=== PATIENT | female | born 1940 | race Caucasian/White ===

== ENCOUNTER 2016-10-13 00:07 | Inpatient (IN) | payer MEDICARE ==
[~2016-10-13] VITALS: Ht 170.2 cm; Wt 67.3 kg
[2016-10-13 01:38] LABS: BASOPHILS 0.5 % (0.0-2.0); EOSINOPHILS 0.8 % (0-7); HEMATOCRIT 41.9 % (36.0-48.0); HEMOGLOBIN 14.1 g/dL (12-16); IMMATURE GRANULOCYTES 0.4 % (0-5); LYMPHOCYTES 24.4 % (15-50); MCH 29.4 pg (26.0-34.0); MCHC 33.7 g/dL (31.0-37.0); MCV 87.5 fL (80.0-100.0); MEAN PLATELET VOLUME 9.9 fL (7.4-10.4); MONOCYTES 6.8 % (2-11); NEUTROPHILS 67.1 % (40-80); PLATELET COUNT 275 10x3/uL (130-400); RBC 4.79 10x6/uL (4.00-5.40); RDW 13.1 % (11.5-14.5)
[2016-10-13 02:07] LABS: ALKALINE PHOSPHATASE 110 U/L (46-116); ALT (SGPT) 24 U/L (10-68); BILIRUBIN - TOTAL 0.49 mg/dL (0.2-1.3); CALC OSMOLALITY 278 mosm/kg (275-300); CALCIUM 9.2 mg/dL (8.5-10.1); CARBON DIOXIDE 25.5 mmol/L (21.0-32.0); CHLORIDE - SERUM 103 mmol/L (98-107); CREATININE - SERUM 0.7 mg/dL (0.6-1.3); GLUCOSE 119 mg/dL (74-106); POTASSIUM - SERUM 3.9 mmol/L (3.5-5.1); PROTEIN - SERUM 6.9 g/dL (6.4-8.2); SODIUM 139 mmol/L (136-145); UREA NITROGEN 13 mg/dL (7-18); eGFR NON AFRICAN AMERICAN 87 mL/min (90-120)
[2016-10-13 03:06] LABS: APPEARANCE CLEAR (CLEAR); BILIRUBIN NEGATIVE (NEGATIVE); COLOR YELLOW (YELLOW); GLUCOSE NEGATIVE (NEGATIVE); KETONE NEGATIVE (NEGATIVE); LEUKOCYTE ESTERASE NEGATIVE (NEGATIVE); NITRITE NEGATIVE (NEGATIVE); PROTEIN NEGATIVE (NEGATIVE); SPECIFIC GRAVITY 1.015 (1.005-1.020); UROBILINOGEN NORMAL (NORMAL)
[2016-10-13] MEDS ORDERED: METOPROLOL TART25 MG PO (06:00)
[2016-10-13] MEDS ORDERED: ZESTRIL40 MG PO (06:02)
[2016-10-13] MEDS ORDERED: ASCORBIC ACID500 MG PO (06:04)
[2016-10-13] MEDS ORDERED: MULTIPLE VITAMI1 TA1 PO (06:04)
[2016-10-13] MEDS ORDERED: VITAMIN D31000 UNI2 PO (06:05)
[2016-10-13] MEDS ORDERED: ATIVAN0.5 MG PO (06:06)
[2016-10-13] MEDS ORDERED: HYDROCHLOROTH12.5 M1 PO (06:06)
[2016-10-13] MEDS ORDERED: MOBIC7.5 MG PO (06:07)
[2016-10-13 06:08] VITALS: Ht 170.2 cm; Wt 67.3 kg
--- NOTE | 2016-10-13 07:30 | NUR ---
PATIENT RECEIVED ALERT IN LOW MENDOZA POSITION. RESPIRATIONS EVEN AND UNLABORED. DENIES PAIN AND OTHER NEEDS. SIDE RAILS UP X3. BED IN LOW POSITION. CALL LIGHT IN REACH. FAMILY PRESENT.
[2016-10-13 08:40] VITALS: BP 173/91
--- NOTE | 2016-10-13 09:00 | NUR ---
PATIENT IN LEFT LATERAL POSITION RESTING WITH EYES CLOSED. RESPIRATIONS EVEN AND UNLABORED. FAMILY PRESENT. SIDE RAILS UP X3. BED IN LOW POSITION. CALL LIGHT IN REACH.
--- NOTE | 2016-10-13 11:45 | NUR ---
PATIENT ALERT IN BED WITH PHYSICIAN AT BEDSIDE. NO SIGNS OF DISTRESS NOTED. SIDE RAILS UP X2. BED IN LOW POSITION. CALL LIGHT IN REACH.
--- NOTE | 2016-10-13 12:30 | NUR ---
MEDICATION ADMINISTERED PER ORDERS. PATIENT UP TO RESTROOM THEN BACK TO BED SBA. POSITIONED SELF FOR COMFORT. DENIES NEEDS. SIDE RAILS UP X2. BED IN LOW POSITION. CALL LIGHT IN REACH.
[2016-10-13 12:34] VITALS: BP 180/86
--- NOTE | 2016-10-13 14:37 | NUR ---
ALERT IN BED TALKING ON PHONE. FAMILY PRESENT. NO NEEDS VOICED. SIDE RAILS UP X2. BED IN LOW POSITION. CALL LIGHT IN REACH.
[2016-10-13 16:34] VITALS: BP 179/86
--- NOTE | 2016-10-13 18:00 | NUR ---
PATIENT IN LEFT LATERAL POSITION RESTING QUIETLY. RESPIRATION EVEN AND UNLABORED. SIDE RAILS UP X2. BED IN LOW POSITION. CALL LIGHT IN REACH.
--- NOTE | 2016-10-13 19:47 | NUR ---
PATIENT IS RESTING IN BED WITH GUESTS AT BEDSIDE. PATIENT COMPLAINS OF FEELING ANXIOUS AND CONSTIPATED. I OFFERED THE PATIENT ATIVAN AND PRUNE JUICE WITH HER 2100 MEDS AND SHE AGREED. BED IN LOWEST POSITION AND CALL LIGHT WITHIN REACH. ENCOURAGED PATIENT TO CALL IF SHE HAS FURTHER NEEDS.
[2016-10-13 21:36] VITALS: BP 161/89
--- NOTE | 2016-10-14 07:25 | NUR ---
PATIENT RECEIVED ALERT IN HIGH MENDOZA POSITION. RESPIRATIONS EVEN AND UNLABORED. SIDE RAILS UP X2. BED IN LOW POSITION. CALL LIGHT IN REACH. DENIES NEEDS.
[2016-10-14 07:53] VITALS: BP 173/69
--- NOTE | 2016-10-14 08:42 | NUR ---
PATIENT IN BED ALERT EATING BREAKFAST. TOLERATING WELL. SCHEDULED MEDICATION ADMINISERED. SIDE RAILS UP X2. BED IN LOW POSITION. CALL LIGHT IN REACH. WILL CONTINUE TO MONITOR.
--- NOTE | 2016-10-14 12:25 | NUR ---
PATIENT ALERT IN MID MENDOZA POSITION WITH FAMILY PRESENT. NO SIGNS OF DISTRESS NOTED. WANTING TO GO HOME. DENIES NEEDS. SIDE RAILS UP X2. BED IN LOW POSITION. CALL LIGHT IN REACH.
[2016-10-14 12:36] VITALS: BP 171/82
[2016-10-14] MEDS ORDERED: METOPROLOL TART25 MG PO (13:08)
[2016-10-14] MEDS ORDERED: ZESTRIL40 MG PO (13:09)
[2016-10-14] MEDS ORDERED: CATAPRES0.1 MG PO (13:09)
[2016-10-14] MEDS ORDERED: CELEXA20 MG PO (13:10)
[2016-10-14] MEDS ORDERED: ATIVAN1 MG PO (13:11)
--- NOTE | 2016-10-14 13:35 | NUR ---
IV TO RIGHT WRIST D/C WITH CATH TIP INTACT. SITE COVERED WITH GAUZE AND BANDAID. WELL TOLERATED.
--- NOTE | 2016-10-14 13:55 | NUR ---
D/C TEACHING AND PRESCRIPTION PROVIDED. STATES UNDERSTANDING. QUETSIONS ANSWERED.
--- NOTE | 2016-10-14 14:04 | NUR ---
PATIENT D/C HOME WITH FAMILY. TRANSFERRED DOWNSTAIRS VIA WHEELCHAIR.
== END 2016-10-14 14:05 | disposition home or self-care (01) | DRG 948 ==
LOC: D.ER 00:07 → D.MS 04:52
PROVIDERS: Family Medicine; ADMIT Family Medicine
DX: R53.1 Weakness (principal); F19.939 Other psychoactive substance use, unspecified with withdrawal, unspecified; T43.226A Underdosing of selective serotonin reuptake inhibitors, initial encounter; Z91.128 Patient's intentional underdosing of medication regimen for other reason; R11.2 Nausea with vomiting, unspecified; F41.9 Anxiety disorder, unspecified

== ENCOUNTER 2017-04-20 12:18 | Inpatient (IN) | payer MEDICARE ==
[~2017-04-20 12:18] MED LIST: ASCORBIC ACID500 MG PO; ATIVAN0.5 MG PO; ATIVAN1 MG PO; CATAPRES0.1 MG PO; CELEXA20 MG PO; HYDROCHLOROTH12.5 M1 PO; METOPROLOL TART25 MG PO; MOBIC7.5 MG PO; MULTIPLE VITAMI1 TA1 PO; VITAMIN D31000 UNI2 PO; ZESTRIL40 MG PO
[2017-04-20 13:18] LABS: BASOPHILS 0.2 % (0-2); EOSINOPHILS 0.8 % (0-7); HEMATOCRIT 40.3 % (36.0-48.0); HEMOGLOBIN 13.8 g/dL (12-16); IMMATURE GRANULOCYTES 0.6 % (0-5); LYMPHOCYTES 18.4 % (15-50); MCHC 34.2 g/dL (31.0-37.0); MCV 87.6 fL (80.0-100.0); MEAN PLATELET VOLUME 9.7 fL (7.4-10.4); MONOCYTES 3.6 % (2-11); NEUTROPHILS 76.4 % (40-80); PLATELET COUNT 239 10x3/uL (130-400); RDW 13.3 % (11.5-14.5); WBC 9.7 10x3/uL (4.8-10.8)
[2017-04-20 13:25] LABS: APTT 27.3 SECONDS (22.8-39.4); INR 0.93 (0.85-1.17); PROTIME 12.3 SECONDS (11.6-15.0)
[2017-04-20 13:30] LABS: ALBUMIN 3.6 g/dL (3.4-5.0); ANION GAP 12.1 mmol/L (8-16); BILIRUBIN - TOTAL 0.4 mg/dL (0.2-1.3); CALCIUM 8.5 mg/dL (8.5-10.1); CARBON DIOXIDE 26.4 mmol/L (21.0-32.0); POTASSIUM - SERUM 3.5 mmol/L (3.5-5.1); PROTEIN - SERUM 6.6 g/dL (6.4-8.2)
[2017-04-20] MEDS ORDERED: TRAZODONE HCL50 MG PO (16:39)
[2017-04-20 16:46] VITALS: BP 95/65
--- NOTE | 2017-04-20 19:15 | NUR ---
RECEIVED CARE FROM DAY NURSE. PT IN ROOM WITH COMPANY AT SIDE. REPORTS NO NEEDS AT THIS TIME. CALL LIGHT AT SIDE.
[2017-04-20 19:28] VITALS: BP 145/89; BMI 22.6
[2017-04-20 20:00] VITALS: BP 127/63
--- NOTE | 2017-04-20 21:45 | NUR ---
REPORTS TAKES CELEXA AT NIGHT AND THAT SHE NO LONGER TAKES MOBIC
[2017-04-20] MEDS ORDERED: CELEXA20 MG PO (21:47)
[2017-04-20 23:51] VITALS: BP 121/46
--- NOTE | 2017-04-21 01:44 | NUR ---
PATIENT RESTING WITH EYES CLOSED AND NO VISIBLE SIGNS OF DISTRESS. BED IN LOWEST POSITION AND CALL LIGHT WITHIN REACH.
--- NOTE | 2017-04-21 03:09 | NUR ---
PT RESTING QUITLY WITH EYES CLOSED. RESP EVEN AND UNLABORED. CALL LIGHT AT SIDE. IV INFUSING TO PATENT LEFT FA. WILL CONTINUE TO MONITOR.
[2017-04-21 04:00] VITALS: BP 114/63
[2017-04-21 06:44] LABS: BASOPHILS 0.1 % (0-2); EOSINOPHILS 1.4 % (0-7); HEMATOCRIT 32.9 % (36.0-48.0); IMMATURE GRANULOCYTES 0.4 % (0-5); LYMPHOCYTES 30.7 % (15-50); MCHC 33.4 g/dL (31.0-37.0); MEAN PLATELET VOLUME 9.7 fL (7.4-10.4); MONOCYTES 9.1 % (2-11); NEUTROPHILS 58.3 % (40-80); PLATELET COUNT 204 10x3/uL (130-400); RDW 13.4 % (11.5-14.5)
[2017-04-21 06:50] LABS: MCV 89.6 fL (80.0-100.0); RBC 3.67 10x6/uL (4.00-5.40); WBC 6.9 10x3/uL (4.8-10.8)
[2017-04-21 07:07] LABS: CALC OSMOLALITY 278 mosm/kg (275-300); CALCIUM 7.9 mg/dL (8.5-10.1); CARBON DIOXIDE 27.7 mmol/L (21.0-32.0); CHLORIDE - SERUM 104 mmol/L (98-107); GLUCOSE 94 mg/dL (74-106); SODIUM 140 mmol/L (136-145); UREA NITROGEN 12 mg/dL (7-18); eGFR NON AFRICAN AMERICAN 87 mL/min (90-120)
[2017-04-21 07:10] LABS: CREATININE - SERUM 0.7 mg/dL (0.6-1.3)
--- NOTE | 2017-04-21 07:30 | NUR ---
RECIEVED PT DURING WALKING ROUNDS. PT RESTING IN BED WITH COMPLAINTS OF PAIN OF A 6 ON A SCALE OF 1-10. MULCHER OPERATOR IN USE. ASSESSMENT DONE PER FLOWSHEET. BED IN LOW POSITION AND CALL LIGHT WITHIN REACH. WILL CONTINUE TO MONITOR.
[2017-04-21 08:10] VITALS: BP 121/61
[2017-04-21 11:52] VITALS: BP 115/56
[2017-04-21 16:13] VITALS: BP 155/68
--- NOTE | 2017-04-21 20:06 | NUR ---
PATIENT RESTING IN BED WITH NO VISIBLE SIGNS OF DISTRESS. ASSISTED PT ON AND OFF BEDPAN. PATIENT DENIES OTHER NEEDS AT THIS TIME. BED IN LOWEST POSITION AND CALL LIGHT WITHIN REACH. ENCOURAGED THE PATIENT TO CALL WITH NEEDS.
[2017-04-21 21:22] VITALS: BP 153/63
[2017-04-22 04:00] VITALS: BP 159/78
[2017-04-22 05:25] LABS: BASOPHILS 0.2 % (0-2); EOSINOPHILS 1.5 % (0-7); HEMATOCRIT 32.3 % (36.0-48.0); HEMOGLOBIN 10.9 g/dL (12-16); IMMATURE GRANULOCYTES 0.2 % (0-5); LYMPHOCYTES 24.4 % (15-50); MCH 29.9 pg (26.0-34.0); MCHC 33.7 g/dL (31.0-37.0); MCV 88.7 fL (80.0-100.0); MEAN PLATELET VOLUME 9.6 fL (7.4-10.4); MONOCYTES 8.2 % (2-11); NEUTROPHILS 65.5 % (40-80); PLATELET COUNT 188 10x3/uL (130-400); RBC 3.64 10x6/uL (4.00-5.40); RDW 13.3 % (11.5-14.5); WBC 8.2 10x3/uL (4.8-10.8)
[2017-04-22 05:40] LABS: CALC OSMOLALITY 278 mosm/kg (275-300); CALCIUM 8.1 mg/dL (8.5-10.1); CARBON DIOXIDE 27.6 mmol/L (21.0-32.0); CHLORIDE - SERUM 105 mmol/L (98-107); CREATININE - SERUM 0.6 mg/dL (0.6-1.3); GLUCOSE 103 mg/dL (74-106); POTASSIUM - SERUM 3.5 mmol/L (3.5-5.1); SODIUM 141 mmol/L (136-145); eGFR NON AFRICAN AMERICAN > 90 mL/min (90-120)
[2017-04-22 05:41] LABS: UREA NITROGEN 7 mg/dL (7-18)
--- NOTE | 2017-04-22 07:30 | NUR ---
RECIEVED PT DURING WALKING ROUNDS. PT RESTING IN BED WITH COMPLAINTS OF PAIN OF A 6 ON A SCALE OF 1-10. WALL SCRAPER IN USE. ASSESSMENT DONE PER FLOWSHEET. BED IN LOW POSITION AND CALL LIGHT WITHIN REACH. WILL CONTINUE TO MONITOR.
[2017-04-22 08:00] VITALS: BP 149/61
--- NOTE | 2017-04-22 08:10 | NUR ---
KCL GIVEN PER ORDER AT THIS TIME. PT RESTING IN BED. WILL CONTINUE TO MONITOR.
--- NOTE | 2017-04-22 10:08 | NUR ---
Patient Name: CARLIE LEARY Admission Status: ER Accout number: [id number] Admission Date: 04-20-2017 : 1940 Admission Diagnosis: Attending: FOUZIA SAHU Current LOS: 2 Anticipated DC Date: Planned Disposition: Inpatient Rehab Primary Insurance: [facility] PF Discharge Planning Comments: CM met with patient and her niece (Emely) to assess discharge planning needs. Patient lives independently at home where she has 2 steps to enter in her garage. She has a cane and an electric wheelchair. She will need some rehab after surgery. CM will continue to follow and assist with discharge planning needs. PCP: English Lassiter on union [place] Leary (son) [phone] Braulio Christianson (son) [phone] Emely Cerrato (Niece) [phone] [employer] Barista: Kalyn Wallis
[2017-04-22 12:14] VITALS: BP 139/68
[2017-04-22 17:31] VITALS: BP 155/76
[2017-04-22 20:00] VITALS: BP 153/82
--- NOTE | 2017-04-22 20:36 | NUR ---
REC'D. SITTING UP 40 DEGREES IN BED.TALKING ON PHONE.RIGHT FOOT PEDAL PULSE PRESENT.WIGGLES TOES AND DORSIFLEXES WITHOUT DIFFICULTY SCD'S ON WILL CONTINUE TO MONITOR FOR ANY CHGES. AND FOLLOW CURRENT PLAN OF CARE.REINFORCED NPO AT MIDNITE FOR SURGERY IN AM VOICES UNDERSTANDING.
[2017-04-23] VITALS (11 sets, daily range): BP systolic 103–169; BP diastolic 52–87
--- NOTE | 2017-04-23 01:23 | NUR ---
RN NOTE: PT RESTING IN SUPINE POSITION WITH EYES CLOSED AND EASY RESPIRATIONS. IV IN LEFT FA PATENT WITH NS INFUSING AT 30 ML / HR. AUGER PRESS OPERATOR / MORPHINE IN USE FOR PAIN CONTROL. DRESSING RIGHT HIP CLEAN AND DRY. SCD'S IN PLACE ON BLE. WILL CONTINUE TO MONITOR FOR NEEDS.
[2017-04-23 05:40] LABS: BASOPHILS 0.3 % (0-2); EOSINOPHILS 2.1 % (0-7); HEMATOCRIT 32.4 % (36.0-48.0); HEMOGLOBIN 10.9 g/dL (12-16); IMMATURE GRANULOCYTES 0.3 % (0-5); LYMPHOCYTES 16.7 % (15-50); MCH 29.6 pg (26.0-34.0); MCHC 33.6 g/dL (31.0-37.0); MEAN PLATELET VOLUME 9.7 fL (7.4-10.4); MONOCYTES 8.3 % (2-11); NEUTROPHILS 72.3 % (40-80); PLATELET COUNT 191 10x3/uL (130-400); RBC 3.68 10x6/uL (4.00-5.40); WBC 9.1 10x3/uL (4.8-10.8)
[2017-04-23 05:49] LABS: CALC OSMOLALITY 274 mosm/kg (275-300); CARBON DIOXIDE 28.4 mmol/L (21.0-32.0); CHLORIDE - SERUM 102 mmol/L (98-107); CREATININE - SERUM 0.5 mg/dL (0.6-1.3); GLUCOSE 87 mg/dL (74-106); POTASSIUM - SERUM 3.4 mmol/L (3.5-5.1); SODIUM 139 mmol/L (136-145); UREA NITROGEN 6 mg/dL (7-18); eGFR NON AFRICAN AMERICAN > 90 mL/min (90-120)
--- NOTE | 2017-04-23 07:40 | NUR ---
PATIENT RECEIVED IN LOW MENDOZA POSITION. NO SIGNS OF DISTRESS NOTED. DENIES NEEDS. SIDE RAILS UP X3. BED IN LOW POSITION. CALL LIGHT AND CORPORATE COMPLIANCE OFFICER BUTTON IN REACH. BED ALARM ON.
--- NOTE | 2017-04-23 08:20 | NUR ---
PATIENT ALERT IN BED. NO SIGNS OF DISTRESS NOTED. ORAL MEDICATION HELD PER NPO STATUS FOR SURGERY. KCL RIDER INITIATED PER ORDER. IVF TUBING CHANGED PER POLICY. ENCOURAGED USE OF INCENTIVE SPIROMETER. SCDS ON BILATERALLY. DENIES NEEDS. SIDE RAILS UP X2. BED IN LOW POSITION. CALL LIGHT IN REACH. BED ALARM ON.
--- NOTE | 2017-04-23 11:20 | NUR ---
PRE PROCEDURE MEDICATION GIVEN WITH SIP OF WATER. DENIES NEEDS. SIDE RAILS UP X2. BED IN LOW POSITION. CALL LIGHT IN REACH. FAMILY PRESENT.
--- NOTE | 2017-04-23 12:15 | NUR ---
PATIENT OFF FLOOR TO SURGERY VIA BED.
--- NOTE | 2017-04-23 15:20 | NUR ---
PATIENT BACK TO ROOM FROM PACU VIA BED. PATIENT ALERT. NO SIGNS OF DISTRESS NOTED. VITAL SIGNS STABLE. SHERIFF TO GRAVITY. SCD ON BILATERALLY. FAMILY AT BEDSIDE. SIDE RAILS UP X3. BED IN LOW POSITION. CALL LIGHT IN REACH. BED ALARM ON.
--- NOTE | 2017-04-23 16:00 | NUR ---
PATIENT REPOSITIONED IN BED. PILLOW PLACED BENEATH RIGHT SIDE. ICE PACK IN PLACE. WELL TOLERATED. SIDE RAILS UP X2. BED IN LOW POSITION. CALL LIGHT IN REACH. BED ALARM ON.
--- NOTE | 2017-04-23 17:30 | NUR ---
PATIENT ALERT IN BED WITH FAMILY PRESENT. NO SIGNS OF DISTRESS NOTED. VITAL SIGNS STABLE. DENIES NEEDS. SIDE RAILS UP X2. BED IN LOW POSITION. CALL LIGHT IN REACH. BED ALARM ON.
[2017-04-24] VITALS: BP 157/80
--- NOTE | 2017-04-24 00:09 | NUR ---
REC'D. AT [facility].OF SHIFT IN BED EYES CLOSED RESP DEEP AND EVEN.FAMILY AT BEDSIDE.LONG LEG DRSG. DRY AND INTACT TO RIGHT LEG NO DRAINAGE NOTED.FOOT PINK AND WARM PEDAL PULSE PRESENT HEELS BRIDGED. ICE IN PLACE WILL CONTINUE TO MONITOR FOR ANY CHGES. IN NEUROVASCULAR STATUS AND FOLLOW CURRENPLAN OF CARE.SHERIFF PATENT AND DRAINING STRAW YELLOW URINE
--- NOTE | 2017-04-24 02:00 | NUR ---
PT RESTING IN BED PEACEFULLY WITH NO SIGNS OF ACUTE DISTRESS NOTED. BED IN LOWEST POSITION. CALL LIGHT IN REACH. WILL CONT WITH POC.
[2017-04-24 04:00] VITALS: BP 140/71
[2017-04-24 05:40] LABS: BASOPHILS 0.2 % (0-2); HEMATOCRIT 26.2 % (36.0-48.0); HEMOGLOBIN 8.9 g/dL (12-16); IMMATURE GRANULOCYTES 0.6 % (0-5); MCH 30.2 pg (26.0-34.0); MCV 88.8 fL (80.0-100.0); MEAN PLATELET VOLUME 9.6 fL (7.4-10.4); NEUTROPHILS 62.2 % (40-80); PLATELET COUNT 209 10x3/uL (130-400); RBC 2.95 10x6/uL (4.00-5.40); RDW 13.4 % (11.5-14.5)
[2017-04-24 05:44] LABS: WBC 6.6 10x3/uL (4.8-10.8)
[2017-04-24 05:58] LABS: CALC OSMOLALITY 276 mosm/kg (275-300); CALCIUM 7.5 mg/dL (8.5-10.1); CARBON DIOXIDE 25.1 mmol/L (21.0-32.0); CHLORIDE - SERUM 106 mmol/L (98-107); CREATININE - SERUM 0.6 mg/dL (0.6-1.3); GLUCOSE 97 mg/dL (74-106); POTASSIUM - SERUM 3.6 mmol/L (3.5-5.1); SODIUM 139 mmol/L (136-145); eGFR NON AFRICAN AMERICAN > 90 mL/min (90-120)
[2017-04-24 06:10] LABS: UREA NITROGEN 9 mg/dL (7-18)
--- NOTE | 2017-04-24 07:05 | NUR ---
PATIENT RECEIVED ALERT IN MID MENDOZA POSITION. NO SIGNS OF DISTRESS NOTED. FAMILY AT BEDSIDE. DENIES NEEDS. SIDE RAILS UP X2. BED IN LOW POSITION. CALL LIGHT AND BEREAVEMENT COORDINATOR BUTTON IN REACH.
[2017-04-24 08:00] VITALS: BP 144/70
--- NOTE | 2017-04-24 08:42 | NUR ---
ALERT IN BED. NO SIGNS OF DISTRESS NOTED. SCHEDULED MEDICATION ADMINISTERED. DENIES PAIN. TOLERATING REGULAR BREAKFAST WITHOUT DIFFICULTY. SIDE RAILS UP X3. BED IN LOW POSITION. CALL LIGHT IN REACH. BED ALARM ON.
--- NOTE | 2017-04-24 09:25 | NUR ---
ALERT IN BED. ENCOURAGED USE OF INCENTIVE SPIROMETER. STATES SHE HAD JUST USED IT. DENIES NEEDS. SIDE RAILS UP X2. BED IN LOW POSITION. CALL LIGHT IN REACH. BED ALARM ON.
--- NOTE | 2017-04-24 10:12 | NUR ---
Rehab Note- Acute Rehab Prescreen order received. The patient has [employer] ins[employer]ace and will need a PreAuth prior to an acute rehab stay. The patient is post op day #1, will follow at this time and see the patient's physical mobility. Thank you for this referral! Taya Nazario RN Clinical Liaison, [facility] Rehab
--- NOTE | 2017-04-24 10:50 | NUR ---
SITTING UP IN CHAIR ALERT. NO SIGNS OF DISTRESS NOTED. MIRALAX GIVEN PER PRN ORDER. DENIES NEEDS. CALL LIGHT IN REACH. GUEST AT BEDSIDE.
[2017-04-24 12:26] VITALS: BP 120/54
--- NOTE | 2017-04-24 12:40 | NUR ---
ALERT IN BED EATING LUNCH. TOLERATING WELL. SCHEDULED IV ABX INITIATED. DENIES NEEDS. SIDE RAILS UP X2. BED IN LOW POSITION. CALL LIGHT IN REACH. SCDS ON BILATERALLY. BED ALARM ON.
[2017-04-24 16:07] VITALS: BP 157/52
--- NOTE | 2017-04-24 16:10 | NUR ---
PATIENT IN MID MENDOZA POSITION RESTING WITH EYES CLOSED. RESPIRATIONS EVEN AND UNLABORED. SIDE RAILS UP X3. BED IN LOW POSITION. CALL LIGHT IN REACH. BED ALARM ON.
[2017-04-24 20:00] VITALS: BP 144/68
--- NOTE | 2017-04-25 02:36 | NUR ---
REC'D. IN BED VISITORS AT BEDSIDE.LONG LEG DRSG. DRY AND INTACT TO RIGHT LEG.TOES VISIBLE.PINK AND WARM PEDAL PULSE PRESENT WIGGLE TOES AND DORSIFLEXES
[2017-04-25 04:00] VITALS: BP 114/56
[2017-04-25 05:27] LABS: BASOPHILS 0.1 % (0-2); EOSINOPHILS 2.3 % (0-7); HEMATOCRIT 24.9 % (36.0-48.0); HEMOGLOBIN 8.3 g/dL (12-16); IMMATURE GRANULOCYTES 0.5 % (0-5); LYMPHOCYTES 16.3 % (15-50); MCH 29.6 pg (26.0-34.0); MCHC 33.3 g/dL (31.0-37.0); MCV 88.9 fL (80.0-100.0); MEAN PLATELET VOLUME 9.2 fL (7.4-10.4); MONOCYTES 9.5 % (2-11); NEUTROPHILS 71.3 % (40-80); PLATELET COUNT 204 10x3/uL (130-400); RDW 13.7 % (11.5-14.5); WBC 8.1 10x3/uL (4.8-10.8)
--- NOTE | 2017-04-25 05:38 | NUR ---
RESTING IN BED WITH EYES CLOSED. NO S/S OF DISTRESS OBSERVED. IV TO LEFT POSTERIOR FOREARM PATENT AND RUNNING D5 1/2 @ 75CC/HR. SHERIFF CATH PATENT WITHJ CLEAR YELLOW URINE DRAINING TO BED SIDE DRAINAGE SYSTEM. SCD'S TO BILA. LOWER EXTREMITIES. FUNCTIONING PROPERLY.O2@2 LITERS PER NASAL CANNULA. RESP. EVEN AND UNLABORED.
[2017-04-25 05:45] LABS: CALC OSMOLALITY 269 mosm/kg (275-300); CALCIUM 7.9 mg/dL (8.5-10.1); CARBON DIOXIDE 26.6 mmol/L (21.0-32.0); CHLORIDE - SERUM 102 mmol/L (98-107); CREATININE - SERUM 0.7 mg/dL (0.6-1.3); GLUCOSE 127 mg/dL (74-106); POTASSIUM - SERUM 3.6 mmol/L (3.5-5.1); SODIUM 135 mmol/L (136-145); UREA NITROGEN 8 mg/dL (7-18); eGFR NON AFRICAN AMERICAN 87 mL/min (90-120)
--- NOTE | 2017-04-25 07:45 | NUR ---
AWAKE AND ALERT. PROVIDED PT WITH ICE WATER AT THIS TIME. RESPIRATIONS EVEN AND NO LABORED. BED ALARM ON AND IN LOWEST POSITION WITH SRX2 AND WHEELS LOCKED. BEAUTY PARLOR CLEANER IN USE WITH PLAN OF CARE. CALL LIGHT IN REACH, WILL CONTINUE WITH PLAN OF CARE.
[2017-04-25 07:51] VITALS: BP 119/56
--- NOTE | 2017-04-25 08:31 | NUR ---
Rehab Note- Spoke with Melody with [facility] @ [phone], stated the member has a plan through a Medicare supplement and to follow Medicare guidelines for Acute Rehab admission and does not require a PreAuth prior to admit. Will follow at this time and plan for an admit to [facility] Acute Rehab when medically stable and ready for discharge from the acute hospital. Thank you for this referral! Taya Nazario RN Clinical Liaison, [facility] Rehab
--- NOTE | 2017-04-25 09:43 | NUR ---
22G IV SITED TO PT'S LEFT HAND X2 ATTEMPTS. BRISK BLOOD RETURN PRESENT. PT TOLERATED WITHOUT COMPLAINTS. DENIES FURTHER NEEDS. WILL AWAIT BLOOD BANK TO PREPARE BLOOD AND THEN TRANSFUSE PER ORDERS.
--- NOTE | 2017-04-25 10:35 | NUR ---
FIRST UNIT OF PRBC'S INITIATED AND WITNESSED AT THIS TIME PER ORDER. BLOOD CONSENT ON CHART. IV TO LEFT HAND PATENT. PRE TRANSFUSION VITALS STABLE. WILL MONITOR PT PER PROTOCOL.
--- NOTE | 2017-04-25 16:19 | NUR ---
OT NOTE: PT COMPLETED BUE AROM FOR INCREASED I WITH BED MOB. PT COMPLETED FM SKILLS FOR INCREASED I WITH ADLS. PT COMPLETED SIMPLE GROOMING WITH SET UP. THANK YOU, KARIS MILLAN
[2017-04-25 19:49] VITALS: BP 150/76
[2017-04-26] VITALS: BP 160/80
[2017-04-26 04:00] VITALS: BP 152/72
[2017-04-26 06:10] LABS: HEMATOCRIT 30.1 % (36.0-48.0); HEMOGLOBIN 10.3 g/dL (12-16)
--- NOTE | 2017-04-26 07:43 | NUR ---
AWAKE AND ALERT. ORIENTED X3. LUNGS ARE CLEAR BILATERALLY, NO COUGH NOTED. USED IS AT THIS TIME. SKIN IS INTACT WITHOUT REDNESS EXCEPT INCISIONS TO RIGHT HIP WHICH HAS A DRY INTACT DRESSING IN PLACE. SL TO LEFT HAND AND IV TO LEFT FOREARM PATENT WITHOUT REDNESS AT INSERTION SITE. SHERIFF PATENT WITH CLEAR YELLOW URINES. DENIES NEEDS.
[2017-04-26 08:01] VITALS: BP 140/80
--- NOTE | 2017-04-26 09:15 | NUR ---
GIVEN ENEMA PER ORDERS WITHOUT COMPLICATIONS.
--- NOTE | 2017-04-26 09:45 | NUR ---
HAD MODERATE LIGHT BROWN VERY HARD STOOL. SKIN CARE PER STAFF. LINENS CHANGED. DENIES NEEDS.
[2017-04-26 12:27] VITALS: BP 151/64
--- NOTE | 2017-04-26 13:53 | NUR ---
SITTING UP IN CHAIR AT BEDSIDE. SEAFOOD AND SERVICE MEAT MANAGER DISCONTINUED AT THIS TIME. DENIES NEEDS.
[2017-04-26] MEDS ORDERED: ELIQUIS2.5 MG PO (14:03)
[2017-04-26] MEDS ORDERED: MIRALAX17 GM PO (14:04)
--- NOTE | 2017-04-26 14:13 | NUR ---
SHERIFF D/C WITH TIP INTACT WITHOUT DIFFICULTY. BSC AT [facility].
--- NOTE | 2017-04-26 15:08 | NUR ---
UP TO BSC. VOIDED CLEAR YELLOW URINE AND HAD A LARGE SOFT STOOL. SKIN CARE PER STAFF.
--- NOTE | 2017-04-26 15:26 | NUR ---
REQUESTED AND GIVEN ONE HYDROCODONE PO FOR C/O RIGHT HIP PAIN LEVEL 6. WILL MONITOR. REPORT CALLED TO TAMI DENISE IN REHAB.
--- NOTE | 2017-04-26 15:51 | NUR ---
DISCHARGED TO REHAB VIA . DISCHARGE INSTRUCTIONS GIVEN BOTH VERBALLY AND WRITTEN. ALL QUESTIONS ANSWERED.
[2017-04-26] MEDS ORDERED: LISINOPRIL10 MG PO (19:05)
--- NOTE | 2017-05-19 09:32 | OP ---
PATIENT NAME: CARLIE MONAHAN MEDICAL RECORD: [id number] :44 LOCATION:[id number] ADMISSION DATE:04/20/17 SURGEON: ANN SIMENTAL MD DATE OF OPERATION: 04/23/2017 PREOPERATIVE DIAGNOSES: 1. Acute subtrochanteric proximal femur fracture. 2. Severe right hip arthritis. POSTOPERATIVE DIAGNOSES: 1. Acute subtrochanteric proximal femur fracture. 2. Severe right hip arthritis. PROCEDURE: Cephalomedullary fixation, IM rodding of right femur using a Recon nail. SURGEON: Ann Simental MD ANESTHESIA: General. INTRAOPERATIVE COMPLICATIONS: None. SUMMARY OF PATHOLOGIC FINDINGS: Essentially none. OPERATIVE SUMMARY IN DETAIL: After obtaining the appropriate orthopedic surgery consent as well as anesthetic consultation, evaluation, and clearance; the patient was brought to the operating room and placed on the operating table in supine position. After general laryngeal mask was administered, the patient was placed on the fracture table. The right leg was placed in the traction oneil, left leg was placed in the well leg oneil. Under direct fluoroscopic visualization, reduction maneuver was performed. The right hip was prepped and draped in a routine sterile fashion. Incision was made over the tip of the greater trochanter. An awl was made to create a starting guide. A ball-tipped guidewire was passed. Slight serial and sequential reaming was done for the Recon nail. The Recon nail was then placed over the ball-tipped guidewire to the appropriate position for the femoral head screws. The femoral head screws were put into the femoral head in a center-center position low as this patient had severe arthritis. They were then locked into place to the appropriate depth and position. Distal intramedullary locking was done under direct fluoroscopic guidance using freehand technique. Having completed this, final radiographs were taken and submitted for radiologist review. Wounds were irrigated and closed in the usual fashion. The patient was awakened, taken to the recovery room in stable condition. All final needle and sponge counts were correct. TRANSINT:[id number] Voice Confirmation ID: [id number] DOCUMENT ID: [id number] ANN SIMENTAL MD at 0932 CC: [id number] DICTATION DATE: 05/17/178 HEALTH SCIENCE INSTRUCTOR: 05/17/178 DIS IN 04/26/17 [facility] [address] [place] [address]
== END 2017-04-26 15:52 | DRG 481 ==
LOC: D.ER 12:18 → D.MS 14:32
PROVIDERS: Family Medicine; Nurse Practitioner Acute Care; Orthopaedic Surgery; ADMIT Family Medicine
PROC: 0QH636Z Insertion of Intramedullary Internal Fixation Device into Right Upper Femur, Percutaneous Approach (ICD-10-PCS; principal; 2017-04-20)
DX: S72.21XA Displaced subtrochanteric fracture of right femur, initial encounter for closed fracture (principal); D62 Acute posthemorrhagic anemia; V88.9XXA Person injured in other specified (collision)(noncollision) transport accidents involving nonmotor vehicle, nontraffic, initial encounter; F41.9 Anxiety disorder, unspecified; I10 Essential (primary) hypertension; M16.11 Unilateral primary osteoarthritis, right hip; E87.6 Hypokalemia; K59.00 Constipation, unspecified

== ENCOUNTER 2017-04-26 14:55 | Inpatient (IN) | payer MEDICARE ==
[~2017-04-26 14:55] MED LIST changes: +ELIQUIS2.5 MG PO; +MIRALAX17 GM PO; +TRAZODONE HCL50 MG PO
--- NOTE | 2017-04-26 16:00 | NUR ---
RECIEVED ON FLOOR
[2017-04-26 17:53] VITALS: BP 144/69; BMI 27.9
[2017-04-26] MEDS ORDERED: LISINOPRIL10 MG PO (19:05)
--- NOTE | 2017-04-26 20:05 | NUR ---
ASSISTED PT TO BATHROOM.
[2017-04-26 23:43] VITALS: BP 129/66
--- NOTE | 2017-04-27 02:35 | NUR ---
PATIENT AWAKE. OBTAINED HER MENU SELECTIONS AND RECORDED THEM ON HER MENU. DENIES NEEDS.
--- NOTE | 2017-04-27 03:52 | NUR ---
REST IN BED, EYE CLOSE, BED LOW, CALL LIGHT IN REACH.
--- NOTE | 2017-04-27 03:54 | NUR ---
REST IN BED, EYE CLOSE, BED LOW, CALL LIGHT IN REACH.
[2017-04-27 05:59] LABS: BASOPHILS 0.2 % (0-2); EOSINOPHILS 3.6 % (0-7); HEMATOCRIT 32.5 % (36.0-48.0); HEMOGLOBIN 10.9 g/dL (12-16); IMMATURE GRANULOCYTES 1.8 % (0-5); LYMPHOCYTES 14.9 % (15-50); MCH 29.3 pg (26.0-34.0); MCHC 33.5 g/dL (31.0-37.0); MCV 87.4 fL (80.0-100.0); MEAN PLATELET VOLUME 9.9 fL (7.4-10.4); MONOCYTES 9.9 % (2-11); NEUTROPHILS 69.6 % (40-80); RBC 3.72 10x6/uL (4.00-5.40); RDW 14.7 % (11.5-14.5); WBC 8.1 10x3/uL (4.8-10.8)
[2017-04-27 06:05] LABS: PLATELET COUNT 245 10x3/uL (130-400)
[2017-04-27 06:28] LABS: CALC OSMOLALITY 275 mosm/kg (275-300); CALCIUM 8.6 mg/dL (8.5-10.1); CARBON DIOXIDE 27.4 mmol/L (21.0-32.0); CHLORIDE - SERUM 104 mmol/L (98-107); CREATININE - SERUM 0.6 mg/dL (0.6-1.3); GLUCOSE 94 mg/dL (74-106); POTASSIUM - SERUM 3.8 mmol/L (3.5-5.1); SODIUM 139 mmol/L (136-145); UREA NITROGEN 8 mg/dL (7-18); eGFR NON AFRICAN AMERICAN > 90 mL/min (90-120)
[2017-04-27 08:00] VITALS: BP 149/86
--- NOTE | 2017-04-27 08:19 | NUR ---
PT EATING BREAKFAST, DENIES NEEDS. WCTM.
--- NOTE | 2017-04-27 09:45 | NUR ---
SALINE LOCK IN RIGHT HAND AND RIGHT FOREARM REMOVED. PATIENT IS NOT ON ANY IV MEDICATIONS
--- NOTE | 2017-04-27 11:16 | NUR ---
OCCUPATIONAL THERAPIST IN ROOM. HELPING PATIENT WITH A SHOWER.
--- NOTE | 2017-04-27 13:15 | NUR ---
PRN NORCO GIVEN PER PATIENT REQUEST FOR LEFT HIP PAIN. DRESSING TO LEFT HIP CHANGED AFTER MARTHA
--- NOTE | 2017-04-27 20:10 | NUR ---
ASSISTED PT TO BATHROOM AND BACK TO BED.
[2017-04-27 22:12] VITALS: BP 166/77
--- NOTE | 2017-04-28 01:05 | NUR ---
LAYING IN RIGHT SIDE, HOB 30 DEGREE, SIDERAIL X 2, CALL LIGHT IN REACH.
--- NOTE | 2017-04-28 02:08 | NUR ---
PT ASSISTED TO THE BATHROOM WITH MOD ASSIST FOR TRANSFERS. SBA FOR TOILETING.
--- NOTE | 2017-04-28 06:30 | NUR ---
PT ASSISTED TO THE BATHROOM. VOIDED WITHOUT DIFFICULTY. MEDICATED WITH MIRALAX PER PTS REQUEST.
[2017-04-28 08:00] VITALS: BP 187/099
--- NOTE | 2017-04-28 08:04 | NUR ---
PATIENT IS ALERT/ORIENT X4. SCD'S ON WHILE IN BED. JANE ALARM ON. CALL LIGHT WITHIN REACH. VOICES NO NEEDS AT THIS TIME.
--- NOTE | 2017-04-28 10:49 | NUR ---
PRN ATIVAN GIVEN FOR ANXIEITY
[2017-04-28 12:07] VITALS: BP 187/99
--- NOTE | 2017-04-28 12:29 | NUR ---
PT EATING LUNCH, DENIES NEEDS. WCTM.
--- NOTE | 2017-04-28 14:45 | NUR ---
DRESSING TO RIGHT HIP CHAGNED. THREE SMALL INCISION SITES. MIDDLE INCISION HAS MODERATE AMOUNT OF SARASANGUOUS DRAINAGE.
--- NOTE | 2017-04-28 17:40 | NUR ---
PATIENT SITTING UP FOR SUPPER IN WHEELCHAIR.
--- NOTE | 2017-04-28 21:10 | NUR ---
ASSISTED PT TO BATHROOM AND BACK TO BED.
[2017-04-28 21:44] VITALS: BP 154/67
--- NOTE | 2017-04-29 02:05 | NUR ---
ASSISTED PT TO BATHROOM AND BACK TO BED.
--- NOTE | 2017-04-29 04:18 | NUR ---
RESTING IN BED WITH EYES CLOSED NO S/S OF DISTRESS OBSERVED. CALL LIGHT AND OVERBED TABLE IN REACH.
[2017-04-29 05:50] LABS: BASOPHILS 0.3 % (0-2); EOSINOPHILS 3.4 % (0-7); HEMATOCRIT 33.5 % (36.0-48.0); LYMPHOCYTES 24.6 % (15-50); MCH 29.2 pg (26.0-34.0); MCHC 32.8 g/dL (31.0-37.0); MCV 88.9 fL (80.0-100.0); MEAN PLATELET VOLUME 9.4 fL (7.4-10.4); MONOCYTES 10.9 % (2-11); NEUTROPHILS 58.8 % (40-80); PLATELET COUNT 249 10x3/uL (130-400); RBC 3.77 10x6/uL (4.00-5.40); RDW 14.8 % (11.5-14.5); WBC 7.9 10x3/uL (4.8-10.8)
[2017-04-29 06:07] LABS: CALC OSMOLALITY 277 mosm/kg (275-300); CALCIUM 8.5 mg/dL (8.5-10.1); CARBON DIOXIDE 27.2 mmol/L (21.0-32.0); CHLORIDE - SERUM 105 mmol/L (98-107); CREATININE - SERUM 0.6 mg/dL (0.6-1.3); GLUCOSE 96 mg/dL (74-106); POTASSIUM - SERUM 3.8 mmol/L (3.5-5.1); SODIUM 140 mmol/L (136-145); UREA NITROGEN 9 mg/dL (7-18); eGFR NON AFRICAN AMERICAN > 90 mL/min (90-120)
--- NOTE | 2017-04-29 06:10 | NUR ---
REST QUIETLY IN BED, CALL LIGHT IN REACH.
--- NOTE | 2017-04-29 06:56 | NUR ---
RESTING QUIETLY IN BED. BED IN LOWEST POSITION. CALL LIGHT IN REACH.
[2017-04-29 08:38] VITALS: BP 141/70
--- NOTE | 2017-04-29 09:01 | NUR ---
PATIENT IS NWB ON RIGHT LEG. INDEPENDANT OF MOST CARE. IN WHEELCHAIR. SELF PROPELLING WHEELCHAIR DOWN HALLWAY.
--- NOTE | 2017-04-29 11:00 | NUR ---
PATIENT IN REHAB ROOM. WORKING WITH PHYSICAL THERAPIST. DENIES ANY PAIN/DISC AT THIS TIME.
--- NOTE | 2017-04-29 15:06 | NUR ---
PATIENT IN ROOM. RESTING IN BED. WORKING WITH KAYLA SPEECH THERAPIST.
--- NOTE | 2017-04-29 17:31 | NUR ---
PATIENT SITTING UP IN WHEELCHAIR TO EAT SUPPER. VOICES NO NEEDS AT THIS TIME.
--- NOTE | 2017-04-29 19:30 | NUR ---
PT. IN BED WITH HOB UP FOR COMFORT. ASSESSMENT COMPLETED. NO VOICED NEEDS AND HAS HER CALL LIGHT WITHIN REACH.
[2017-04-29 20:00] VITALS: BP 153/83
--- NOTE | 2017-04-29 23:12 | NUR ---
PT. IN BED WITH HOB UP FOR COMFORT AND LYING ON HER LEFT SIDE. EYES CLOSED AND RESP. DEEP AND EVEN. SCD'S REMAIN ON BLE'S WITHOUT ANY ALARMS. CALL LIGHT REMAINS WITHIN REACH.
--- NOTE | 2017-04-30 03:10 | NUR ---
PT. IN BED WITH HOB UP FOR COMFORT AND LYING ON HER LEFT SIDE. EYES CLOSED AND RESP. EVEN WITH CALL LIGHT WITHIN REACH.
--- NOTE | 2017-04-30 08:00 | NUR ---
SHIFT ASSMT COMPLETED.DRSG LEFT HIP INTACT.
[2017-04-30 08:42] VITALS: BP 156/80
--- NOTE | 2017-04-30 12:00 | NUR ---
SITTING UP EATING LUNCH.CL IN REACH.
--- NOTE | 2017-04-30 16:00 | NUR ---
RESTING QUIETLY.CL IN REACH.
--- NOTE | 2017-04-30 16:05 | NUR ---
PATIENT ADMITTED TO REHAB FROM ACUTE FLOOR. HER PCP IS DR. SAHU AND HER [facility]ACY IS [facility]. DME AT HOME IS A [facility] [employer]. WILL CONTINUE TO FOLLOW WITH PATIENT AND WILL ASSIST WITH HER DISCHARGE NEEDS.
--- NOTE | 2017-04-30 19:20 | NUR ---
PT. IN BED WITH HOB UP FOR COMFORT. SCD'S PLACED TO BLE'S AND TURNED ON WITHOUT ANY PROBLEMS. NO VOICED NEEDS AND SHE HAS HER CALL LIGHT WITHIN REACH.
[2017-04-30 22:09] VITALS: BP 153/68
--- NOTE | 2017-04-30 23:10 | NUR ---
PT. IN BED LYING ON HER LEFT SIDE WITH EYES CLOSED AND RESP. EVEN. SCD'S ON BLE'S WITHOUT ANY ALARMS AND HER CALL LIGHT IS WITHIN REACH.
--- NOTE | 2017-05-01 03:10 | NUR ---
PT. IN BED WITH HOB/FOB ELEVATED FOR COMFORT WITH SCD'S TO BLE'S WITHOUT ANY ALARMS. EYES CLOSED AND RESP. EVEN. CALL LIGHT IS WITHIN REACH.
[2017-05-01 06:10] LABS: BASOPHILS 0.3 % (0-2); EOSINOPHILS 3.9 % (0-7); HEMOGLOBIN 11.4 g/dL (12-16); IMMATURE GRANULOCYTES 3.9 % (0-5); LYMPHOCYTES 22.1 % (15-50); MCH 29.2 pg (26.0-34.0); MCHC 32.6 g/dL (31.0-37.0); MCV 89.7 fL (80.0-100.0); MEAN PLATELET VOLUME 9.4 fL (7.4-10.4); MONOCYTES 10.2 % (2-11); NEUTROPHILS 59.6 % (40-80); WBC 8.8 10x3/uL (4.8-10.8)
[2017-05-01 06:33] LABS: PLATELET COUNT 367 10x3/uL (130-400)
[2017-05-01 06:35] LABS: CALC OSMOLALITY 276 mosm/kg (275-300); CALCIUM 8.5 mg/dL (8.5-10.1); CARBON DIOXIDE 26.8 mmol/L (21.0-32.0); CHLORIDE - SERUM 104 mmol/L (98-107); CREATININE - SERUM 0.6 mg/dL (0.6-1.3); GLUCOSE 91 mg/dL (74-106); POTASSIUM - SERUM 3.5 mmol/L (3.5-5.1); SODIUM 139 mmol/L (136-145); UREA NITROGEN 11 mg/dL (7-18); eGFR NON AFRICAN AMERICAN > 90 mL/min (90-120)
--- NOTE | 2017-05-01 08:00 | NUR ---
SHIFT ASSMT COMPLETED.INCISIONS TO RT HIP INTACT WITH DRSG IN PLACE.
[2017-05-01 08:43] VITALS: BP 157/84
--- NOTE | 2017-05-01 12:00 | NUR ---
EATING LUNCH.DENIES NEEDS.
--- NOTE | 2017-05-01 15:29 | NUR ---
CARE TEAM MEETING TENATIVE DISCHARGE DATE IS 05/03/17. SHE WILL HAVE FAMILY TO BE WITH HER AT HOME. SHE WILL NEED AT WHEELCHAIRAND A SHOWER CHAIR FROM [facility] AT [facility].SHE HAS CHOSEN [facility]. APPOINTMENTS WITH DR. SAHU AND DR. SIMENTAL WILL BE MADE AT DISCHRGE. WILL CONTINUE TO FOLLOW WITH PATIENT
--- NOTE | 2017-05-01 16:00 | NUR ---
RESTING QUIETLY.CL IN REACH.
--- NOTE | 2017-05-01 19:30 | NUR ---
PT. IN BED WITH HOB UP FOR COMFORT AND TV ON. ASSESSMENT COMPLETED. NO VOICED NEEDS AND HER CALL LIGHT IS WITHIN REACH.
[2017-05-01 20:30] VITALS: BP 151/72
--- NOTE | 2017-05-01 23:10 | NUR ---
PT. IN BED WITH HOB UP FOR COMFORT WITH EYES CLOSED AND RESP. DEEP AND EVEN. SCD'S ON BLES'S WITHOUT ANY ALARMS. CALL LIGHT WITHIN REACH.
--- NOTE | 2017-05-02 03:05 | NUR ---
PT. IN BED WITH HOB UP FOR COMFORT AND IS WATCHING TV. ASSISTED TO BR AND BACK TO BED. PT. REQUESTED TO HAVE HER SCD'S LEFT OFF TO GIVE HER LEGS A BREAK. COMPLIED WITH REQUEST. CALL LIGHT WITHIN REACH UPON LEAVING ROOM.
--- NOTE | 2017-05-02 07:21 | NUR ---
RESTING QUIETLY IN BED. BED IN LOWEST POSITION. CALL LIGHT IN REACH
[2017-05-02 08:05] VITALS: BP 162/82
--- NOTE | 2017-05-02 09:06 | RHP ---
PATIENT: CARLIE MONAHAN MEDICAL RECORD: [id number] ACCOUNT: [id number] LOCATION:[facility]1117 : 44 ADMISSION DATE: 04/26/17 REHABILITATION HISTORY AND PHYSICAL EXAMINATION POST ADMISSION PHYSICIAN EXAMINATION Post-admission Physical Examination and History and Physical DATE OF ADMISSION: 04/26/2017 ADMITTING DIAGNOSES: Right femoral fracture. HISTORY OF PRESENT ILLNESS: The patient admitted to inpatient rehab with a right femoral neck fracture, status post IM rodding. She is a 76-year-old female, a patient of Dr. Figueroa, with a history of degenerative joint disease in her hip and usually uses a walker. She was using a scooter and fell over and hurt her thigh, came to Emergency Room, was found to have a right femur fracture. She had an accelerated essential hypertension, acute blood loss anemia and hypokalemia. Prior to this event, she was living alone and was moderately independent with mobility and ADLs. She is currently nonweightbearing on her right leg and is requiring Eliquis for DVT prophylaxis. Her anemia required packed red blood cells. She is running a low-grade temperature and has a cough. Her current function is max assist with bed mobility and transfers and max assist for mobility due to pain and nonweightbearing status of her right lower extremity. She will require 24-hour supervision of an RN and will need management of a physician at least 5 days per week. She will require intensive therapy including PT and OT in order to return back to her prior level of functioning. COMORBIDITIES: In this patient include anxiety, essential hypertension, right femoral neck fracture, degenerative joint disease, acute blood loss anemia, hyperkalemia and osteoarthritis. PAST MEDICAL HISTORY: Significant for cataracts, dentures. She got a history of anxiety. PAST SURGICAL HISTORY: Includes , a cyst removed from her vocal cords. ALLERGIES: PENICILLIN. CURRENT MEDICATIONS: Include lisinopril 10 mg daily, multivitamin daily, vitamin D 1000 units daily, Celexa 20 mg at bedtime, [place] 10/325 one tab q.4 hours p.r.n., Desyrel 50 mg at bedtime, MiraLax 17 grams in 8 ounces of water daily, metoprolol 25 mg b.i.d., Ativan 1 mg q.8 hours p.r.n., clonidine 0.1 mg q.4 hours p.r.n. systolic blood pressure greater than 190, ascorbic acid 500 mg b.i.d. and Eliquis 2.5 mg b.i.d. HABITS: No alcohol or tobacco use. FAMILY HISTORY: Noncontributory. SOCIAL HISTORY: The patient hopes to return home and get back to her prior level of functioning. REVIEW OF SYSTEMS: HISTORY AND PHYSICAL [id number] CARLIE MONAHAN GENERAL: Denies weakness or fatigue. HEENT: Denies cold, cough, or congestion. CARDIOVASCULAR: Denied chest pain. PHYSICAL EXAMINATION: VITAL SIGNS: Stable, afebrile. GENERAL: A somewhat obese female in no acute distress, alert upon exam. HEENT: Normocephalic and atraumatic. Mucosa moist. NECK: Supple. No lymphadenopathy. LUNGS: Clear at this time. HEART: Regular rate and rhythm. ABDOMEN: Benign. EXTREMITIES: No clubbing, cyanosis, or edema. Postop swelling appears normal. NEUROLOGIC: Intact. LABORATORY DATA: Her white count is 8.1. Her H&H are 10.9 and 32.5. Her platelet count is 245. Her sodium is 139, potassium 3.8, BUN and creatinine of 8 and 0.6, and blood sugar is noted to be 94. ASSESSMENT: This is 76-year-old female patient admitted to rehab with a working diagnosis of right proximal femur fracture complicated by accelerated hypertension. The patient has potential to make improvement. We instituted the following multidisciplinary therapies including to, but not limited to physical, occupational, respiratory, speech, nutritional services, prosthetics and orthotics. Given her complex condition and risk for more complications, rehabilitation services cannot be provided at a low level of care such as a detention facility. PLAN: 1. Admit to [facility] rehab for intensive inpatient therapy to include the following disciplines: A. Physical therapy to improve gait, all transfer skills and bed mobility to a modified independent level. B. Occupational therapy to improve activities of daily living to a modified independent level. C. Case management to assist with discharge planning and placement options. D. Nutrition to assist with nutritional needs. E. Rehabilitation nursing to assist in monitoring the patient's underlying medical conditions and to assist with any type of bowel or bladder management. 2. The patient's current medication and medical care will be continued. 3. The placed on standard fall precautions. 4. The patient's estimated length of stay is approximately 7-10 days. 5. Discuss this patient during care team staff meeting this week. TRANSINT:[id number] Voice Confirmation ID: [id number] DOCUMENT ID: [id number] ROSELIA notes whether there has been none or any medical/functional change since admission: - No change since prescreen. ROSELIA attests patient continues to be appropriate for IRF: - Continues to be appropriate. HISTORY AND PHYSICAL [id number] CARLIE MONAHAN SCOTT MD at 0906 CC: [id number] DICTATION DATE: 04/27/17 09 DIRECTOR TOXICOLOGY: 04/27/17 1047 ADM IN [facility] [address] [id number]
--- NOTE | 2017-05-02 11:59 | NUR ---
PATIENT DISCHARGING IN AM TO HER HOME. [facility] WILL PROVIDE THERAPY AT HOME. [facility] WILL DELIVER A WHEELCHAIR AND SHOWER CHAIR TO PATIENT. DR. SAHU 05/08/17 @ 3:00, DR. SIMENTAL 05/15/17 @ 1:15. PATIENT CHOICE FOR HOME HEALTH AND [facility] FORM SIGNED, EXPLAINED AND FILED IN CHART.ORDERS HAVE BEEN FAXED WITH CONFORMATION RECIEVED FOR DME. WILL CONTINUE TO FOLLOW WITH PATIENT UNTIL DISCHARGED
--- NOTE | 2017-05-02 18:04 | NUR ---
EATING SUPPER IN BED. DENIES NEEDS
--- NOTE | 2017-05-02 19:26 | NUR ---
RECIEVED UP IN BED WITH TV ON. PLEASANT AND COOPERATIVE. DENIES ANY PAIN. CALL LIGHT AND OVER BED TABLE IN REACH.
--- NOTE | 2017-05-02 21:17 | NUR ---
UP IN BED WITH TV ON. PLEASANT AND COOPERATIVE. DENIES ANY PAIN. ASSISTED TO TOILET EARLIER. REQUIRES STAND BY ASSIST. CALL LIGHT AND OVERBED TABLE IN REACH.
[2017-05-02 22:56] VITALS: BP 165/74
--- NOTE | 2017-05-03 00:37 | NUR ---
RESTING IN BED WITH EYES CLOSED. NO S/S OF DISTRESS OBSERVED. CALL LIGHT AND OVERBED TABLE IN REACH.
--- NOTE | 2017-05-03 04:22 | NUR ---
RESTING IN BED WITH EYES CLOSED. NO S/S OF DISTRESS OBSERVED. BED ALARM IN PLACE AND FUNCTIONING PROPERLY. CALL LIGHT AND OVERBED TABLE IN REACH.
--- NOTE | 2017-05-03 08:00 | NUR ---
SITTING UP IN W/C EATING BREAKFAST. DENIES NEEDS. CALL LIGHT IN REACH
--- NOTE | 2017-05-03 11:24 | NUR ---
Nutrition Follow Up: Pt continues at low nutritional risk. RD following.
--- NOTE | 2017-05-03 11:45 | NUR ---
D/C HOME WITH ALL PERSONAL BELONGINGS. SON IN ROOM TO TAKE PT HOME. HAS NEW W/C IN ROOM THAT PT IS TAKING WITH HER. ISRRAEL IN RT HIP HAS NO S/S INFECTION. MEDS CALLED INTO PHARMACY.
[2017-05-03 16:09] VITALS: BP 136/76
--- NOTE | 2017-07-14 16:26 | DS ---
PATIENT:CARLIE MONAHAN :44 MEDICAL RECORD: [id number] DISCHARGE SUMMARY ADMISSION DATE: 04/26/17 DISCHARGE DATE: 05/03/17 This is a discharge dated 05/03/2017 from inpatient rehab. PRIMARY DIAGNOSIS: Decreased functional mobility and ability to provide activities of daily living, status post right hip fracture, status post repair. SECONDARY DIAGNOSES: 1. Degenerative joint disease. 2. Hypertension. 3. Anxiety. 4. Osteoarthritis. 5. Hyperkalemia. 6. Anemia with acute blood loss. HOSPITAL COURSE: Full H&P is located elsewhere on the chart on this 76-year-old female who was admitted to inpatient rehab for physical therapy and occupational therapy to improve gait, transfer skills, bed mobility, and activities of daily living to a modified independent level. She was evaluated by PT and OT and their plans of care were followed. She required [facility] care for observation and assessment, medication administration, as well as wound care and monitoring of surgical incision. Electrolytes were managed by protocol. She was cooperative with therapies, progressing towards goals. Case management was involved for discharge planning. She was considered stable for discharge on 05/03/2017. DISCHARGE MEDICATIONS: As per discharge medication reconciliation. DISCHARGE DISPOSITION: The patient is discharged home. She will have home health for continued PT and OT and will follow up with primary care and specialists as directed. She will have a wheelchair and shower chair provided by [facility]. At least 30 minutes was spent on this discharge activity. TRANSINT:[id number] Voice Confirmation ID: [id number] DOCUMENT ID: [id number] Dictated By: MANAV ENNIS I have interviewed/examined the above patient and agree with these documented findings. FRANTZ DOMINGUEZ MD at 1626 at 1628 CC: [id number] DICTATION DATE: 07/13/17 1118 MUSIC PUBLICIST: 07/13/17 1335 DIS IN 05/03/17 [id number] [place] [address]
== END 2017-05-03 12:19 | disposition home health service (06) | DRG 560 ==
LOC: D.REHAB 14:55
PROVIDERS: ADMIT Emergency Medicine
DX: S72.001D Fracture of unspecified part of neck of right femur, subsequent encounter for closed fracture with routine healing (principal); D62 Acute posthemorrhagic anemia; I10 Essential (primary) hypertension; M19.90 Unspecified osteoarthritis, unspecified site; E87.5 Hyperkalemia; W19.XXXD Unspecified fall, subsequent encounter